=== PATIENT | female | born 1975 | race Caucasian/White ===

== ENCOUNTER 2023-07-15 03:43 | Emergency (ER) | payer BC, SELFPAY ==
[2023-07-15 03:45] VITALS: BP 120/80
--- NOTE | 2023-07-15 04:15 | ED.GENMED ---
History of Present Illness
General
Chief Complaint: Headache
Source: patient
Exam Limitations: none
Time Seen by Provider: 07/15/23 03:51
Nursing documentation reviewed up to this point in time: agreed with
Travel History
Have you had any contact with someone who has COVID-19?: No
Do you have any symptoms of coronavirus? Fever > 100 degrees, chills, cough, shortness of breath, sore throat, loss of taste or smell, muscle aches, or headache?: No
History of Present Illness
History of Present Illness:
Patient presents to ED secondary to headache behind her left eye, along with nausea sensation which woke the patient up from sleep this morning. Of note, patient reports sudden onset of dizziness and room spinning sensation, when she woke up
yesterday morning. Extreme dizziness resolved, but patient did not feel like herself all day long. Denies fever or chills. Denies difficulty with speech. Denies loss of sensation or weakness. Denies difficulty with swallowing. Denies previous
history of similar symptoms. Denies recent illness. Denies recent trauma. There is family history of cerebral aneurysm.
Review of Systems
Review of Systems
Allergies reviewed?: Yes
All Other Systems: ROS reviewed and negative except as documented in HPI and ROS
Constitutional: Reports no symptoms
EENT: Reports no symptoms
Respiratory: Reports no symptoms
Cardiac: Reports no symptoms
ABD/GI: Reports nausea; Denies vomiting
: Reports no symptoms
Musculoskeletal: Reports no symptoms
Skin: Reports no symptoms
Neurological: Reports dizzy and headache
Phy Exam
Physical Exam
Physical Exam:
Physical Exam
General: mild painful distress, not acutely ill. afebrile
Head: nc/at. eomi
Neck: supple. no meningeal signs.
Heart: s1/s2 regular rate and rhythm, no murmur. equal radial pulses.
Lungs: no acute respiratory distress. clear bilaterally
Abdomen: normal bowel sounds. not tender.
Neuro: alert and oriented. no focal neurological deficits. normal speech.
Skin: no rash
Psychiatric: well kept. interactive and cooperative
Extremities: no edema. no calf tenderness.
Course
Orders/Labs/Results
Orders:
Orders
07/15/23 04:07
Prochlorperazine [Compazine] 10 mg IV NOW STA
07/15/23 04:08
CT Head W/o Iv Contrast Urgent
Comment:
Reason For Exam: severe headache
07/15/23 04:11
0.9% Sodium Chloride 500 ml [Nss] 500 ml IV BOLUS
07/15/23 04:12
Morphine Sulfate 2 mg IV NOW STA
07/15/23 04:19
Complete Blood Count/With Diff Urgent
Comprehensive Metabolic Panel Urgent
Magnesium Urgent
07/15/23 05:44
Acetaminophen [Tylenol] 1,000 mg .ROUTE .STK-MED ONE
07/15/23 05:53
Acetaminophen [Tylenol] 1,000 mg PO NOW STA
Abnormal Lab Results
07/15/23
04:19
RBC 4.08 L 10^6/uL
(4.20-5.40)
Hgb 9.4 L g/dL
(12.0-16.0)
Hct 30.0 L %
(37.0-47.0)
MCV 73.5 L fL
(81.0-99.0)
MCH 23.0 L pg
(27.0-31.0)
MCHC 31.3 L g/dL
(33.0-37.0)
RDW 17.2 H %
(11.5-14.5)
Creatinine 0.5 L mg/dL
(0.6-1.0)
07/15/23 04:19
07/15/23 04:19
Vital Signs
Initial and Last Documented VS:
Initial Vital Signs
Temp Pulse Resp BP Pulse Ox
98.1 F 80 18 120/80 100
07/15/23 03:45 07/15/23 03:45 07/15/23 03:45 07/15/23 03:45 07/15/23 03:45
Last Documented Vital Signs
Temp Pulse Resp BP Pulse Ox
98.1 F 77 16 113/76 98
07/15/23 03:45 07/15/23 06:13 07/15/23 06:13 07/15/23 06:13 07/15/23 06:13
MDM/Problems Addressed
MDM/Problems Addressed:
CT head: No acute findings.
Offered treatment with medications for symptomatic relief, but patient declined. Prefers to not take any medications, aside from tylenol, at this time. Pt is otherwise, afebrile, hemodynamically stable, and neurologically intact at time of
discharge, to the care of her spouse, with recommendation to f/u with pmd for re-evaluation, including MRI brain, as outpatient, if symptoms persist.
*Critical Care Note
Total Time (30-74mins, 75-104mins- exclusive of procedures): Not Applicable
ED Attending Note
-
Portions of this chart may have been created with voice recognition software.� Occasional wrong word or��sound alike� substitutions may have occurred due to the inherent limitations of voice recognition software.
Discharge Plan
Departure
Patient Disposition: Home (Routine Discharge)
Date of Disposition: 07/15/23
Time of Disposition: 06:16
Patient with high blood pressure during this ER visit?: No
Condition: Good
Discharge Problem:
Headache
Instructions: Headache, Adult (DC)
Referrals:
Daniel Forman MD [Family Provider] -
Activity Restrictions/Additional Instructions:
As discussed, please follow-up with your primary care physician for further evaluation and treatment, including potential referral to neurology for consultation and/or MRI brain as an outpatient, if symptoms persist.
Interventions
Interventions:
*Risk Screen - Suicide Last Done: 07/15/23 03:45
*Neglect/Abuse Screening Last Done: 07/15/23 03:45
ED- Fall Risk Assessment Last Done: 07/15/23 04:26
*Nursing Disposition Last Done: 07/15/23 06:29
ED- Neurological Assessment Last Done: 07/15/23 04:26
Discharge Date and Time
Discharge Date/Time: 07/15/23 06:30
[2023-07-15 04:28] LABS: % Basophils 0.4 % (0-2); % Eosinophils 1.9 % (0-6); % Immature Granulocytes 0.2 % (0-0.5); % Lymphocytes 38.1 % (20.5-51.1); % Monocytes 8.7 % (1.7-9.3); % Neutrophils 50.7 % (42.2-75.2); Absolute Eosinophils 0.1 10^3/uL (0-0.7); Absolute Lymphocytes 2.2 10^3/uL (1.2-3.4); Absolute Monocytes 0.5 10^3/uL (0.1-0.6); Absolute Neutrophils 2.9 10^3/uL (1.4-6.5); Hemoglobin 9.4 g/dL (12.0-16.0); Mean Corp Hgb Conc. 31.3 g/dL (33.0-37.0); Mean Corpuscular Volume 73.5 fL (81.0-99.0); Mean Platelet Volume 9.7 fL (7.4-10.4); Nucleated Red Blood Cells % 0 %; Platelet Count 284 10^3/uL (130-400); Red Blood Cell Count 4.08 10^6/uL (4.20-5.40); Red Cell Dist. Width 17.2 % (11.5-14.5); White Blood Cell Count 5.7 10^3/uL (4.8-10.8)
[2023-07-15 04:50] LABS: ALT (SGPT) 15 U/L (0-35); AST (SGOT) 25 U/L (14-36); Alkaline Phosphatase 64 U/L (38-126); Blood Urea Nitrogen 13 mg/dl (7-17); Carbon Dioxide 25 mmol/L (22-30); Chloride 104 mmol/L (98-107); Glucose 95 mg/dl (70-99); Magnesium 2.1 mg/dl (1.6-2.3); Sodium 139 mmol/L (135-145); Total Bilirubin 0.7 mg/dl (0.2-1.3); Total Protein 6.7 g/dl (6.3-8.2); eGFR > 60.00
[2023-07-15] MEDS: TYLENOL 1000 MG PO (05:53)
[2023-07-15] MEDS: NSS 500 IV (05:54)
[2023-07-15 06:13] VITALS: BP 113/76
== END 2023-07-15 06:30 | disposition home or self-care (01) ==
LOC: EMR 03:43
PROVIDERS: EMERGENCY PHYSICIAN Emergency Medicine; FAMILY PHYSICIAN Internal Medicine
DX: R51.9 Headache, unspecified (principal); R11.0 Nausea; R42 Dizziness and giddiness
CPT/HCPCS: 99284; 70450; 80053; 83735; 85025

== ENCOUNTER 2024-05-21 20:07 | Emergency (ER) | payer BC, SELFPAY ==
[2024-05-21 20:14] VITALS: BP 145/84
[2024-05-22 02:00] VITALS: BP 151/89
--- NOTE | 2024-05-22 02:51 | ED.GENMED ---
History of Present Illness
General
Chief Complaint: Visual Problem
Time Seen by Provider: 05/22/24 02:38
History of Present Illness
History of Present Illness:
48-year-old female presents to the emergency department for evaluation of a sudden onset of a blurry vision in the right eye beginning earlier today while reading to her granddaughter. Denies any pain, describes sensation as a film over the eye.
No diplopia or photophobia. No associated headache. Symptom has not resolved despite time. She does not wear contacts.
Review of Systems
Review of Systems
Allergies reviewed?: Yes
All Other Systems: ROS reviewed and negative except as documented in HPI and ROS
Phy Exam
Physical Exam
Physical Exam:
GEN: Well appearing, NAD, WDWN
HEENT: Pupils equal round and reactive to light bilaterally. No anterior chamber abnormalities, fluorescein stain exam is unremarkable with no uptake, nondilated retinal exam without obvious hemorrhages; oral mucosa moist, no scleral icterus
Cardiac: Regular rate
Lung: No respiratory distress, no tachypnea
MSK: No gross deformity or injuries
Skin: Good color, no pallor or jaundice, no rashes
Neuro: AO x3, moves all extremities freely
Psych: Calm, cooperative
Course
Orders/Labs/Results
Orders:
Orders
05/21/24 20:19
CT Head W/o Iv Contrast Urgent
Comment:
Reason For Exam: right eye vision change
Vital Signs
Initial and Last Documented VS:
Initial Vital Signs
Temp Pulse Resp BP Pulse Ox
98.1 F 108 20 145/84 99
05/21/24 20:14 05/21/24 20:14 05/21/24 20:14 05/21/24 20:14 05/21/24 20:14
Last Documented Vital Signs
Temp Pulse Resp BP Pulse Ox
98.1 F 92 16 142/84 98
05/21/24 20:14 05/22/24 03:24 05/22/24 03:24 05/22/24 03:24 05/22/24 03:24
MDM/Problems Addressed
MDM/Problems Addressed:
CT is unremarkable. Doubt neurologic phenomenon. Eye exam performed by myself is grossly unremarkable, patient will follow-up with her eye doctor as an outpatient tomorrow
*Critical Care Note
Total Time (30-74mins, 75-104mins- exclusive of procedures): Not Applicable
ED Attending Note
-
Portions of this chart may have been created with voice recognition software.� Occasional wrong word or��sound alike� substitutions may have occurred due to the inherent limitations of voice recognition software.
Discharge Plan
Departure
Patient Disposition: Home (Routine Discharge)
Date of Disposition: 05/22/24
Time of Disposition: 02:53
Patient with high blood pressure during this ER visit?: No
Discharge Problem:
Blurred vision, right eye
Referrals:
Daniel Forman MD [Family Provider] -
Activity Restrictions/Additional Instructions:
The cause of your symptoms is not clear however does not appear to be an eye emergency at this time. Please call your eye doctor in the morning for follow-up evaluation
Interventions
Interventions:
*Risk Screen - Suicide Last Done: 05/22/24 03:00
*General Assessment Last Done: 05/21/24 20:14
*Neglect/Abuse Screening Last Done: 05/22/24 03:00
ED- Fall Risk Assessment Last Done: 05/22/24 03:15
*ED COVID-19 Vaccine History Last Done: 05/22/24 03:29
*Nursing Disposition Last Done: 05/22/24 03:24
ED- Neurological Assessment Last Done: 05/22/24 00:51
ED-EENT Assessment Last Done: 05/22/24 00:47
ED Swallowing Screen Last Done: 05/22/24 00:52
Discharge Date and Time
Discharge Date/Time: 05/22/24 03:28
Print Language: BOLIVIAN
[2024-05-22 03:24] VITALS: BP 142/84
== END 2024-05-22 03:28 | disposition home or self-care (01) ==
LOC: EMR 20:07
PROVIDERS: EMERGENCY PHYSICIAN Student in an Organized Health Care Education/Training Program; FAMILY PHYSICIAN Internal Medicine
DX: H53.8 Other visual disturbances (principal)
CPT/HCPCS: 99284; 70450